=== PATIENT | male | born 1980 | race Caucasian/White ===

== ENCOUNTER 2023-11-30 11:50 | Emergency (ER) | payer BC, SELFPAY ==
[2023-11-30 11:51] VITALS: BP 132/95
--- NOTE | 2023-11-30 13:35 | ED.GENMED ---
History of Present Illness
General
Chief Complaint: Musculo-Skeletal Complaint
Source: patient
Exam Limitations: none
Time Seen by Provider: 11/30/23 12:11
Nursing documentation reviewed up to this point in time: agreed with
Travel History
Have you had any contact with someone who has COVID-19?: No
Do you have any symptoms of coronavirus? Fever > 100 degrees, chills, cough, shortness of breath, sore throat, loss of taste or smell, muscle aches, or headache?: No
History of Present Illness
History of Present Illness:
43-year-old male without significant past medical history presenting to the emergency department today with concerns of a sharp posterior ankle discomfort while playing soccer earlier today difficulty ambulating since. [place] a pop at the time.
Denies numbness weakness
Review of Systems
Review of Systems
Allergies reviewed?: Yes
All Other Systems: ROS reviewed and negative except as documented in HPI and ROS
Phy Exam
Physical Exam
Physical Exam:
GENERAL: Alert , in no apparent distress
EYE: pupils equal and reactive
NECK: Supple, no significant adenopathy.
ENT: o/p clr, mmm.
CARDIAC: Regular rate and rhythm .
LUNGS: Clear breath sounds bilaterally, no acute respiratory distress, no wheezes/rales/rhonchi
ABDOMEN: Soft, without focal tenderness, no r/g, no cvat
NEUROLOGICAL: Alert and oriented, no focal neuro deficits
SKIN: Warm and dry, skin intact.
MUSCULOSKELETAL: Swelling and mild discomfort to palpation to the right posterior ankle at the area of the insertion of the Achilles. There is a divot at this point. Positive Prado squeeze test, well perfused.
PSYCH: Normal and appropriate interaction.
Course
Orders/Labs/Results
Orders:
Orders
11/30/23 11:56
Ankle, Right 3 view CR [CR Ankle - Right Min 3 Views *] Urgent
Comment:
Reason For Exam: developed gonzalez and decreased ROM while running.
11/30/23 12:52
Crutches-Treatment ONCE
Vital Signs
Initial and Last Documented VS:
Initial Vital Signs
Temp Pulse Resp BP Pulse Ox
99.4 F 121 20 132/95 98
11/30/23 11:51 11/30/23 11:51 11/30/23 11:51 11/30/23 11:51 11/30/23 11:51
Last Documented Vital Signs
Temp Pulse Resp BP Pulse Ox
99.4 F 121 20 132/95 98
11/30/23 11:51 11/30/23 11:51 11/30/23 11:51 11/30/23 11:51 11/30/23 11:51
Procedures
Splinting/Sling Placement
Right Posterior Ankle:
Procedure completed by: Myself
Pre-splint extermity exam: neurovascular intact
Type of splint: danish wrap, sugar-tong and posterior short leg
Splint material: fiberglass
Splint checked by provider?: Yes
Normal distal neurovascular exam?: Yes
MDM/Problems Addressed
MDM/Problems Addressed:
43-year-old male presenting to the emergency department today with concerns of discomfort to his right posterior ankle occurring at soccer prior to arrival. Clinically consistent with Achilles tear positive Prado squeeze test divot at the distal
Achilles point no bony tenderness x-ray without signs of fracture. Patient was splinted in plantarflexion and advised for close orthopedic follow-up for further recommendation.
*Critical Care Note
Total Time (30-74mins, 75-104mins- exclusive of procedures): Not Applicable
ED Attending Note
-
Portions of this chart may have been created with voice recognition software.� Occasional wrong word or��sound alike� substitutions may have occurred due to the inherent limitations of voice recognition software.
Discharge Plan
Departure
Patient Disposition: Home (Routine Discharge)
Date of Disposition: 11/30/23
Time of Disposition: 13:37
Patient with high blood pressure during this ER visit?: No
Condition: Good
Covid-19: Not Applicable
Discharge Problem:
Achilles rupture, right
Instructions: Achilles Tendon Rupture (DC), Achilles Tendon Rupture Repair (DC)
Referrals:
NONE,* [Family Provider] -
Lobo Avalos MD [Active] - Follow up in 5-7 days
Activity Restrictions/Additional Instructions:
The emergency department today with concerns of an Achilles tear. Please leave the splint in place and follow-up closely with orthopedics. Return to the emergency department for any worsening, new or concerning symptoms.
Interventions
Interventions:
*Risk Screen - Suicide Last Done: 11/30/23 12:13
*General Assessment Last Done: 11/30/23 12:13
*Neglect/Abuse Screening Last Done: 11/30/23 12:13
ED- Fall Risk Assessment Last Done: 11/30/23 12:07
*ED COVID-19 Vaccine History Last Done: 11/30/23 12:13
ED-Musculoskeletal Assessment Last Done: 11/30/23 12:07
Discharge Date and Time
Print Language: ST LUCIAN
== END 2023-11-30 14:02 | disposition home or self-care (01) ==
LOC: EMR 11:50
PROVIDERS: EMERGENCY PHYSICIAN Student in an Organized Health Care Education/Training Program
DX: S86.011A Strain of right Achilles tendon, initial encounter (principal); X50.0XXA Overexertion from strenuous movement or load, initial encounter
CPT/HCPCS: 99283; 29515; 73610

== ENCOUNTER 2023-12-19 14:03 | Emergency (ER) | payer BC, SELFPAY ==
[2023-12-19 14:04] VITALS: BP 147/94
--- NOTE | 2023-12-19 16:26 | ED.GENMED ---
History of Present Illness
<Jamila Umanzor PA-C - Last Filed: 12/19/23 22:47>
General
Chief Complaint: DVT/Possible Blood Clot
Source: patient
Exam Limitations: none
Time Seen by Provider: 12/19/23 16:06
Nursing documentation reviewed up to this point in time: agreed with
Travel History
Have you had any contact with someone who has COVID-19?: No
Do you have any symptoms of coronavirus? Fever > 100 degrees, chills, cough, shortness of breath, sore throat, loss of taste or smell, muscle aches, or headache?: No
History of Present Illness
History of Present Illness:
Patient is a 43 year old male presenting for evaluation of acute onset right posterior calf pain in setting of recent Achilles tendon rupture. Patient suffered ruptured Achilles on his right side approximately 2.5 weeks ago. He was seen by
Chris at [facility] and opted for nonoperative management. He was placed in a boot with instructions to follow-up in 6 weeks for evaluation. Patient was started on 2 baby aspirin daily for blood clot prevention.
Patient states that about 2 days ago he noticed acute onset any new pain in his right mid posterior calf, it is worse with applying pressure. He denies any numbness or tingling in right lower extremity. He denies any chest pain, shortness of
breath. He spoke to his orthopedic surgeon regarding pain and was sent to emergency department to rule out blood clot.
Patient has no personal or family history of blood clots or clotting disorders. He endorses compliance to aspirin.
Phy Exam
<Jamila Umanzor PA-C - Last Filed: 12/19/23 22:47>
Physical Exam
Physical Exam:
Vitals: Vital signs stable
General: Patient is well appearing, no acute distress
Skin: Warm and dry, no rashes or lesions
Head: Normocephalic, atraumatic
Eyes: Sclera nonicteric. EOMs intact. No nystagmus.
Throat: Protecting airway
Neck: Normal ROM, no cervical spine tenderness, no meningismus
Cardiac: Regular rate and rhythm, no murmurs.
Pulm: Normal respiratory effort, no wheezes, rales, rhonchi heard on exam.
Abdomen: No abdominal tenderness.
Extremities: Very mild tenderness to palpation of the mid posterior calf without any evidence of cyanosis or edema of right lower extremity. No palpable cord or notable bruising. DP, PT, popliteal pulses palpable and bilaterally. Right lower
extremity neurovascular intact. Right lower extremity warm and well perfused.
Neuro: AAOx3. CN II-XII intact. No focal neurologic deficits.
Psychiatric: Normal affect.
Course
<Jamila Umanzor PA-C - Last Filed: 12/19/23 22:47>
Orders/Labs/Results
Orders:
Orders
12/19/23 14:13
Legs, Right US [US Periph Venous LOWER Ext RT] Urgent
Comment:
Reason For Exam: pain in right calf, recent achilles rupture
Vital Signs
Initial and Last Documented VS:
Initial Vital Signs
Temp Pulse Resp BP Pulse Ox
98.9 F 106 20 147/94 98
12/19/23 14:04 12/19/23 14:04 12/19/23 14:04 12/19/23 14:04 12/19/23 14:04
Last Documented Vital Signs
Temp Pulse Resp BP Pulse Ox
98.9 F 85 20 123/84 98
12/19/23 14:04 12/19/23 16:43 12/19/23 16:43 12/19/23 16:43 12/19/23 16:43
Maguilt;Ángel Pineda DO - Last Filed: 12/19/23 17:11>
Orders/Labs/Results
Orders:
Orders
12/19/23 14:13
Legs, Right US [US Periph Venous LOWER Ext RT] Urgent
Comment:
Reason For Exam: pain in right calf, recent achilles rupture
Vital Signs
Initial and Last Documented VS:
Initial Vital Signs
Temp Pulse Resp BP Pulse Ox
98.9 F 106 20 147/94 98
12/19/23 14:04 12/19/23 14:04 12/19/23 14:04 12/19/23 14:04 12/19/23 14:04
Last Documented Vital Signs
Temp Pulse Resp BP Pulse Ox
98.9 F 85 20 123/84 98
12/19/23 14:04 12/19/23 16:43 12/19/23 16:43 12/19/23 16:43 12/19/23 16:43
<Jamila Umanzor PA-C - Last Filed: 12/19/23 22:47>
MDM/Problems Addressed
Differential Diagnosis Includes:
Not limited to: Muscle strain, muscle spasm, inflammation, contusion, DVT
MDM/Problems Addressed:
Patient is a 43-year-old male presenting with right calf pain in setting of recent Achilles tendon rupture on right side 2.5 weeks ago. Patient opting for nonoperative management, and wearing cam boot. Spoke to orthopedic surgeon who recommended
ultrasound to rule out DVT. He denies any chest pain, shortness of breath. He has no personal or family history of blood clots. Vital stable. Exam as above. He has good distal pulses in right lower extremity. Very minimal tenderness in right
posterior calf. There is no obvious erythema or edema of right lower extremity. Ultrasound negative for DVT.
Discussed possibility of missing early DVT on ultrasound. Patient should follow-up with primary care or return if symptoms persist for the next week for repeat ultrasound. Patient stable for discharge with return precautions. He will follow-up
with orthopedic surgeon, as well. Recommended elevation, NSAIDs for pain. Reached out to PCP emergency department clinician through hospital to help patient establish care with primary care.
Chronic conditions affecting care:
Recent Achilles rupture
Acute Exacerbation and/or Progression of Chronic Illness:
N/A
<Jamila Umanzor PA-C - Last Filed: 12/19/23 22:47>
*Radiology
Radiology exam reviewed: radiology read reviewed
*Pulse Oximetry
Patient hypoxic: no
*EKG
Interpreted by ED Provider?: NA
*Concrete Buster Operator Interpretation
Rate: Concrete Buster Operator- N/A
*Critical Care Note
Total Time (30-74mins, 75-104mins- exclusive of procedures): Not Applicable
ED Attending Note
<Jamila Umanzor PA-C - Last Filed: 12/19/23 22:47>
-
Portions of this chart may have been created with voice recognition software.� Occasional wrong word or��sound alike� substitutions may have occurred due to the inherent limitations of voice recognition software.
<Ángel iPneda DO - Last Filed: 12/19/23 17:11>
ED Attending Note
Patient seen and examined by attending physician: Yes
I performed the substantive portion of visit, reviewed & personally made and approve the management plan that is documented in note by myself or HIRAM.: Yes
ED Attending Note:
I agree with Karissa's note.
Right calf pain with recent achillies injury. Immobilized in a cam walker for non-op management. No chest pain. No SOB.
Good cap refill in right foot. Normal pulses.
u/s neg for dvt
Discharge Plan
Departure
Patient Disposition: Home (Routine Discharge)
Date of Disposition: 12/19/23
Time of Disposition: 17:11
Patient with high blood pressure during this ER visit?: No
Condition: Good
Discharge Problem:
Right calf pain
Referrals:
UNKNOWN - PT DOES,NOT KNOW [Family Provider] -
Activity Restrictions/Additional Instructions:
- Return to the emergency department with any high fevers, chest pain, shortness of breath, worsening pain or swelling in right lower extremity, numbness or tingling in right lower extremity, worsening in current symptoms, or any other concerns
-You should continue to elevate your leg as often as possible. Continue to take your baby aspirin as prescribed by orthopedic surgeon.
-As discussed�if symptoms persist you should follow-up with your primary care or orthopedic doctor within a week. You may require a repeat ultrasound. A message has been sent to a emergency department clinician to get you in touch with a primary care provider.
Interventions
Interventions:
*Risk Screen - Suicide Last Done: 12/19/23 16:30
*General Assessment Last Done: 12/19/23 16:30
*Neglect/Abuse Screening Last Done: 12/19/23 16:30
*Nursing Disposition Last Done: 12/19/23 17:21
ED- Cardiac Assessment Last Done: 12/19/23 16:30
ED- Pulmonary Assessment Last Done: 12/19/23 16:30
ED-Peripheral Vascular Assessment Last Done: 12/19/23 16:30
ED-Skin Assessment Last Done: 12/19/23 16:30
Discharge Date and Time
Discharge Date/Time: 12/19/23 17:21
Print Language: ARMENIAN
[2023-12-19 16:43] VITALS: BP 123/84
== END 2023-12-19 17:21 | disposition home or self-care (01) ==
LOC: EMR 14:03
PROVIDERS: EMERGENCY PHYSICIAN Emergency Medicine
DX: M79.661 Pain in right lower leg (principal)
CPT/HCPCS: 99284; 93971

== ENCOUNTER 2023-12-29 10:22 | Emergency (ER) | payer BC, SELFPAY ==
[2023-12-29 10:41] VITALS: BP 147/105
[2023-12-29 11:33] LABS: % Basophils 0.3 % (0-2); % Eosinophils 0.5 % (0-6); % Immature Granulocytes 0.4 % (0-0.5); % Lymphocytes 13.3 % (20.5-51.1); % Neutrophils 80.5 % (42.2-75.2); Absolute Eosinophils 0.1 10^3/uL (0-0.7); Absolute Immature Granulocytes 0.1 10^3/uL (0-0.05); Absolute Lymphocytes 1.7 10^3/uL (1.2-3.4); Absolute Monocytes 0.7 10^3/uL (0.1-0.6); Absolute Neutrophils 10.4 10^3/uL (1.4-6.5); Hematocrit 42.9 % (39.0-52.0); Hemoglobin 14.9 g/dL (13.0-18.0); Mean Corp Hgb Conc. 34.7 g/dL (33.0-37.0); Mean Corpuscular Hgb 30.8 pg (27.0-31.0); Mean Corpuscular Volume 88.8 fL (80.0-94.0); Mean Platelet Volume 10.2 fL (7.4-10.4); Nucleated Red Blood Cells % 0 % (-); Platelet Count 208 10^3/uL (130-400); Red Blood Cell Count 4.83 10^6/uL (4.70-6.10); Red Cell Dist. Width 11.7 % (11.5-14.5); White Blood Cell Count 12.9 10^3/uL (4.8-10.8)
--- NOTE | 2023-12-29 11:49 | ED.GENMED ---
History of Present Illness
General
Chief Complaint: DVT/Possible Blood Clot
Source: patient
Exam Limitations: none
Time Seen by Provider: 12/29/23 11:06
Travel History
Have you had any contact with someone who has COVID-19?: No
Do you have any symptoms of coronavirus? Fever > 100 degrees, chills, cough, shortness of breath, sore throat, loss of taste or smell, muscle aches, or headache?: No
History of Present Illness
History of Present Illness:
Patient currently in a long boot for nonoperative management of an Achilles tendon rupture. Had leg pain last week that was negative. Repeat ultrasound at [facility] was positive today. Does complain of some mild epigastric pain at times. Has
been taking an aspirin per day. No melanotic or dark stool. No bloody stool. No other risk factor for bleeding.
Past History
Past History
ED Past Medical History: None
Review of Systems
Review of Systems
Constitutional: Denies fever
Respiratory: Reports no symptoms
Cardiac: Reports no symptoms
Phy Exam
Physical Exam
Physical Exam:
GENERAL: Alert and oriented in no apparent distress
EYE: Orbits normal.
CARDIAC: Regular rate and rhythm without any obvious murmurs.
LUNGS: Clear breath sounds,normal
Abdomen: Rectal exam heme-negative
Neuro: Grossly nonfocal
SKIN: Warm and dry, no rash or lesion, no discoloration, skin intact.
MUSCULOSKELETAL: No edema,no deformity.Good color. No obvious cords swelling erythema to the calf. Good distal pulses
PSYCH: Normal and appropriate interaction.
Course
Orders/Labs/Results
Orders:
Orders
12/29/23 11:21
Basic Metabolic Panel Urgent
Complete Blood Count/With Diff Urgent
Prothrombin Time Urgent
12/29/23 11:48
Case Management Consult ONCE
Case Management Consult: Other
12/29/23 13:07
US Periph Venous LOWER Ext RT Urgent
Comment:
Reason For Exam: Right calf pain. Achilles tear.
12/29/23 16:03
Apixaban [Eliquis] 10 mg .ROUTE .STK-MED ONE
12/29/23 20:00
Apixaban [Eliquis] 10 mg PO BID
Abnormal Lab Results
12/29/23
11:21
WBC 12.9 H 10^3/uL
(4.8-10.8)
Abs Immat Gran (auto) 0.1 H 10^3/uL
(0-0.05)
Absolute Neuts (auto) 10.4 H 10^3/uL
(1.4-6.5)
Absolute Monos (auto) 0.7 H 10^3/uL
(0.1-0.6)
Neutrophils % 80.5 H %
(42.2-75.2)
Lymphocytes % 13.3 L %
(20.5-51.1)
BUN 25 H mg/dl
(9-20)
Glucose 109 H mg/dl
(70-99)
12/29/23 11:21
12/29/23 11:21
Vital Signs
Initial and Last Documented VS:
Initial Vital Signs
Temp Pulse Resp BP Pulse Ox
98.4 F 105 20 147/105 100
12/29/23 10:41 12/29/23 10:41 12/29/23 10:41 12/29/23 10:41 12/29/23 10:41
Last Documented Vital Signs
Temp Pulse Resp BP Pulse Ox
98.4 F 99 18 156/73 99
12/29/23 10:41 12/29/23 15:49 12/29/23 15:49 12/29/23 15:49 12/29/23 15:49
MDM/Problems Addressed
Differential Diagnosis Includes:
DVT by outpatient. We are trying to get the report. No risk factors for bleeding. Has had some mild epigastric disc likely from the aspirin. However stable hemoglobin and rectal negative. Will start anticoagulation. Discussed DOAC versus
warfarin. Risk-benefit discussed of each. Also will ask case management involvement.
*Pulse Oximetry
Patient hypoxic: no
*Critical Care Note
Total Time (30-74mins, 75-104mins- exclusive of procedures): Not Applicable
Data Reviewed
Review of Other/Old Records Reveals: Radiology Studies
Update Note
Update Note:
I called [facility] radiology. Forced to leave a message with no answer. Also called orthopedics who this report was allegedly given to. They allegedly did not receive a report. Clearly not getting a definitive answer from
orthopedics and [facility] radiology. I see no choice repeat the ultrasound. Patient is okay with this after discussion.
Also more discussions on Eliquis versus Coumadin/Lovenox
ED Attending Note
-
Portions of this chart may have been created with voice recognition software.� Occasional wrong word or��sound alike� substitutions may have occurred due to the inherent limitations of voice recognition software.
Discharge Plan
Departure
Patient Disposition: Home (Routine Discharge)
Date of Disposition: 12/29/23
Time of Disposition: 16:06
Patient with high blood pressure during this ER visit?: Yes
Discharge Problem:
Deep vein thrombosis right leg
Instructions: Deep Vein Thrombosis (Blood Clots in the Legs) (DC), Taking oral medicines for blood clots, BLOOD PRESSURE
Prescriptions:
New
Eliquis DVT-PE Treat 30D Start 5 mg (74 tabs) tablets,dose pack
5 mg PO BID Qty: 74 0RF
Referrals:
NONE,* [Family Provider] -
Activity Restrictions/Additional Instructions:
Recommend repeat ultrasound in a few weeks
Take 2 tablets of Eliquis twice a day for 1 week. Then decrease down to 1 tablet twice a day.
Interventions
Interventions:
*Risk Screen - Suicide Last Done: 12/29/23 10:41
*General Assessment Last Done: 12/29/23 10:41
*Neglect/Abuse Screening Last Done: 12/29/23 10:41
ED- Fall Risk Assessment Last Done: 12/29/23 11:00
*Nursing Disposition Last Done: 12/29/23 16:13
ED- Cardiac Assessment Last Done: 12/29/23 11:00
ED- Pulmonary Assessment Last Done: 12/29/23 11:00
ED-Peripheral Vascular Assessment Last Done: 12/29/23 11:00
Discharge Date and Time
Discharge Date/Time: 12/29/23 17:03
Print Language: HUNGARIAN
[2023-12-29 11:50] LABS: Blood Urea Nitrogen 25 mg/dl (9-20); Calcium 9.4 mg/dl (8.4-10.2); Carbon Dioxide 26 mmol/L (22-30); Chloride 103 mmol/L (98-107); Glucose 109 mg/dl (70-99); Potassium 4.1 mmol/L (3.5-5.1); Sodium 138 mmol/L (135-145); eGFR > 60.00
[2023-12-29 11:56] LABS: INR 1.02; PT 13.2 Sec (11.4-14.6)
--- NOTE | 2023-12-29 12:50 | CM ---
CM following re:discharge planning.
CM consulted to check the beltre for Eliquis 5mg BID.
Eliquis beltre checked. 5mg BID - $30.00 co-pay. Free 30 days coupon and monthly $10.00 co-pay cards provided.
Reviewed pt's chart, met with pt and pt's spouse at bedside.
Pt is a 43 year old male, arrived to ER with primary concerns of DVT/Possible Blood Clot.
Pt reports he lives with spouse 2SH, 2 steps to enter, has supportive family. Pt is independent in all areas [employer], uses crutches due to clots.
Pt stated he does not have PCP and he would like to have a PCP that affiliates with . A list provided.
Pharmacy: [facility]
D/C plan: home no needs. Spouse to transport.
[2023-12-29 13:38] VITALS: BP 141/79
[2023-12-29 15:49] VITALS: BP 156/73
[2023-12-29] MEDS: ELIQUIS 10 MG PO (16:06)
== END 2023-12-29 17:03 | disposition home or self-care (01) ==
LOC: EMR 10:22
PROVIDERS: Emergency Medicine; EMERGENCY PHYSICIAN Emergency Medicine
DX: I82.451 Acute embolism and thrombosis of right peroneal vein (principal); I82.441 Acute embolism and thrombosis of right tibial vein; M79.604 Pain in right leg; R10.13 Epigastric pain; R03.0 Elevated blood-pressure reading, without diagnosis of hypertension; Z98.890 Other specified postprocedural states; Z88.0 Allergy status to penicillin
CPT/HCPCS: 99284; 80048; 85025; 85610; 93971